=== PATIENT | male | born 1965 | race Caucasian/White ===

== ENCOUNTER → 2016-07-25 | Outpatient (CLI) | payer OTHER ==
--- NOTE | 2016-07-25 14:37 | DIAGNOSTIC IMAGING REPORT ---
SPECT bone scan limited BONE SCAN LIMITED (NM) CLINICAL HISTORY: *W/TOMOGRAPHY LOW BACK Pain, fusion OF SPINE spinal fusion. Pain. TECHNIQUE: Multi planar imaging post administration of 26.9 mCi technetium 99m MDP. COMPARISON STUDY: None FINDINGS: Mild degenerative and/or postoperative activity of the lumbar spine. This primarily seen at L1-L2 and to a lesser extent posterior elements as residual posterior to L5. This minimal activity is most likely postoperative. IMPRESSION: 1. Operative findings consistent with a lumbar fusion. 2. Minimal posterior injection activity of the vertebral bodies as well as posterior elements felt to be consistent with unremarkable postoperative change. 3. Otherwise negative study Electronically signed by: Cornell Lee M.D. 07/25/2016 2:36 PM Dictated Date/Time: 07/25/2016 2:19 PM
== END ==
LOC: C.NUCL 09:47
PROVIDERS: ATTEND Family Medicine
DX: M54.5 Low back pain (principal); Z98.890 Other specified postprocedural states